=== PATIENT | female | born 1990 | race African-American/Black ===

== ENCOUNTER 2024-09-16 04:24 | Emergency (ER) | payer OTHER ==
[~2024-09-16] VITALS: Ht 162.6 cm; Wt 86.2 kg
[2024-09-16] MEDS: IV NS 0.9% 1,000 ML IV ONE (06:03)
[2024-09-16] MEDS: KETOROLAC TROMETHAMINE INJ 30 MG/ML VIAL IV ONE (06:03)
[2024-09-16] MEDS: ONDANSETRON HCL/PF - ER 4 MG/2 ML VIAL IV ONE (06:03)
[2024-09-16] MEDS ORDERED: KETOROLAC TROMETHAMINE INJ 30 MG/ML VIAL ONE (06:10)
[2024-09-16] MEDS ORDERED: ONDANSETRON HCL/PF 4 MG/2 ML VIAL ONE (06:10)
[2024-09-16 06:33] LABS: BASOPHILS # (AUTO) 0.1 K/uL (0.0-0.2); BASOPHILS % (AUTO) 0.5 % (0.0-2.0); EOSINOPHILS % (AUTO) 0.1 % (0.0-6.0); HEMATOCRIT 41 % (33-45); HEMOGLOBIN 13.3 g/dL (11.5-14.8); LYMPHOCYTES # (AUTO) 1.1 K/uL (0.8-4.8); LYMPHOCYTES % (AUTO) 7.1 % (20.0-44.0); MEAN CORPUSCULAR HEMOGLOBIN 28 PG (26.0-33.0); MEAN CORPUSCULAR HGB CONC 32 g/dl (31.0-36.0); MEAN CORPUSCULAR VOLUME 86 fL (82-100); MONOCYTES # (AUTO) 0.5 K/uL (0.1-1.30); MONOCYTES % (AUTO) 3.2 % (2.0-12.0); NEUTROPHILS # (AUTO) 14.1 K/uL (1.8-8.9); NEUTROPHILS % (AUTO) 89.1 % (43.0-81.0); PLATELET COUNT (AUTO) 467 K/uL (150-450); RED BLOOD CELL COUNT(AUTO) 4.76 MIL/uL (4.0-5.2); RED CELL DISTRIBUTION WIDTH 14.7 % (11.5-15.0); WHITE BLOOD COUNT (AUTO) 15.9 K/uL (4.3-11.0)
[2024-09-16 06:47] LABS: CALCIUM, SERUM 9.6 mg/dL (8.5-10.1); CARBON DIOXIDE 25 mmol/L (21-32); CHLORIDE 103 mmol/L (98-107); CREATININE 0.9 mg/dL (0.6-1.3); GLUCOSE 100 mg/dL (74-106); POTASSIUM 3.9 mmol/L (3.5-5.1); SODIUM SERUM 139 mmol/L (136-145); UREA NITROGEN, BLOOD 16 mg/dL (7-18)
[2024-09-16 07:00] LABS: ALANINE AMINOTRANSFERASE 35 U/L (12-78); ALBUMIN 3.8 g/dL (3.4-5.0); ALCOHOL, BLOOD < 3 mg/dL (0-10); ALKALINE PHOSPHATASE 87 U/L (46-116); ASPARTATE AMINOTRANSFERASE 19 U/L (15-37); BILIRUBIN,TOTAL 0.3 mg/dL (0.2-1.0); LIPASE 25 U/L (16-77); PREGNANCY TEST SERUM QUAN 1 mIU/mL (0-6); TOTAL PROTEIN, SERUM 8.6 g/dL (6.4-8.2)
[2024-09-16] MEDS ORDERED: ONDA4TAB11 PO (07:59)
[2024-09-16] MEDS ORDERED: KETO10TA2 PO (07:59)
[2024-09-16] MEDS ORDERED: HALOPERIDOL LACTATE INJ 5 MG/ML VIAL ONE (08:31)
[2024-09-16] MEDS: HALOPERIDOL LACTATE INJ 5 MG/ML VIAL IV ONE (08:35)
[2024-09-16 09:13] VITALS: BP 101/64; TEMP 97.7; O2SAT 98
== END 2024-09-16 09:13 | disposition home or self-care (01) ==
LOC: EDBD 04:26 → ER 04:26
DX: R10.9 Unspecified abdominal pain (principal); R11.2 Nausea with vomiting, unspecified; Z79.899 Other long term (current) drug therapy; Z60.2 Problems related to living alone; R10.2 Pelvic and perineal pain
CPT/HCPCS: 99285; 96374; 96361; 96375; 74176; 85025; 83690; 36415; 80053; 84702; 80320; J1630; J1885; J2405 ×2; G0480